=== PATIENT | female | born 1995 | race African-American/Black ===

== ENCOUNTER 2016-12-19 | Inpatient (IN) | payer MEDICAID, OTHER ==
[~2016-12-19] VITALS: Ht 157.5 cm; Wt 76.7 kg
[2016-12-19] VITALS (45 sets, daily range): BP systolic 89–142; BP diastolic 53–88
[~2016-12-19] MED LIST: PREN1TAB86 PO
--- OUTSIDE RECORDS SUMMARY | 2016-12-19 07:51 | XMS REPORT | Continuity of Care Document ---
Author Author [facility] Organization [facility] Address Unknown Phone Unavailable Care Team Providers Care Public Relations Supervisor Name Role Phone NO, LOCAL PHYSICIAN PCP Unavailable Insurance Providers Payer Name Policy Number Subscriber Name Relationship Self Pay Akiko Albert 16 Self / Same As Patient Advance Directives Directive Response Recorded Date/Time Advance Directives No 11/03/16 5:10pm Organ Donor No 11/03/16 5:10pm Resuscitation Status Full Code 11/03/16 5:10pm Problems No problem information available. Medications Current Home Medications Medication Dose Units Route Directions Days/Qty Instructions Start Date Vit W-Ca,Fe,Fa(<1 Mg) 1 Each 1 Each Oral Daily 11/03/16 Social History Social History Problem Response Recorded Date/Time Recent Foreign Travel No 11/03/2016 5:10pm Recent Infectious Disease Exposure No 11/03/2016 5:10pm Smoking Status Current Everyday Smoker 11/03/2016 5:10pm Type Used Cigars 11/03/2016 5:10pm Query Response Start Date Stop Date Smoking Status Current Everyday Smoker Hospital Discharge Instructions No hospital discharge instructions. Plan of Care Discharge Date 11/03/16 7:56pm Instructions/Education Provided OB OUTPATIENT DISCHARGE Prescriptions See Medication Section Functional Status No functional status results. Allergies, Adverse Reactions, Alerts No known allergies. Immunizations No immunization records. Vital Signs Acute Vital Signs Vital Response Date/Time Pulse Rate (adult) 96 bpm (60 - 90) 11/03/2016 6:25pm Respiratory Rate 20 bpm (12 - 24) 11/03/2016 6:25pm Blood Pressure 104/73 mm Hg 11/03/2016 6:25pm Blood Pressure Mean 83 mm Hg 11/03/2016 6:25pm Pain Numeric Pain Scale 2 11/03/2016 6:25pm Height (Feet) 5 feet 11/03/2016 5:35pm Height (Inches) 2.00 inches 11/03/2016 5:35pm Height (Calculated Centimeters) 157.494543 cm 11/03/2016 5:35pm Weight (Pounds) 152 pounds 11/03/2016 5:35pm Weight (Ounces) 0.0 oz 11/03/2016 5:35pm Weight (Calculated Grams) 32211.04 gm 11/03/2016 5:35pm Weight (Calculated Kilograms) 68.841043 kilograms 11/03/2016 5:35pm Calculated BMI 27.8 11/03/2016 5:35pm Results Laboratory Results Test Name Result Units Flags Reference Collection Date/Time Result Date/ Time Comments White Blood Count 5.1 10^3/uL 4.3-11.0 11/03/2016 5:10pm 11/03/2016 5: 34pm Red Blood Count 3.66 10^6/uL L 4.35-5.85 11/03/2016 5:10pm 11/03/2016 5: 34pm Hemoglobin 9.5 G/DL L 11.5-16.0 11/03/2016 5:10pm 11/03/2016 5:34pm Hematocrit 29 % L 35-52 11/03/2016 5:10pm 11/03/2016 5:34pm Mean Corpuscular Volume 79 FL L 80-99 11/03/2016 5:10pm 11/03/2016 5: 34pm Mean Corpuscular Hemoglobin 26 PG 25-34 11/03/2016 5:10pm 11/03/2016 5: 34pm Mean Corpuscular Hemoglobin Concent 33 G/DL 32-36 11/03/2016 5:10pm 03/2016 5:34pm Red Cell Distribution Width 14.5 % 10.0-14.5 11/03/2016 5:10pm 2015 5:34pm Platelet Count 279 10^3/uL 130-400 11/03/2016 5:10pm 11/03/2016 5:34pm Mean Platelet Volume 10.6 FL H 7.4-10.4 11/03/2016 5:10pm 11/03/2016 5: 34pm Neutrophils (%) (Auto) 48 % 42-75 11/03/2016 5:10pm 11/03/2016 5:34pm Lymphocytes (%) (Auto) 41 % 12-44 11/03/2016 5:10pm 11/03/2016 5:34pm Monocytes (%) (Auto) 9 % 0-12 11/03/2016 5:10pm 11/03/2016 5:34pm Eosinophils (%) (Auto) 2 % 0-10 11/03/2016 5:10pm 11/03/2016 5:34pm Basophils (%) (Auto) 0 % 0-10 11/03/2016 5:10pm 11/03/2016 5:34pm Neutrophils # (Auto) 2.5 X 10^3 1.8-7.8 11/03/2016 5:10pm 11/03/2016 5: 34pm Lymphocytes # (Auto) 2.1 X 10^3 1.0-4.0 11/03/2016 5:10pm 11/03/2016 5: 34pm Monocytes # (Auto) 0.5 X 10^3 0.0-1.0 11/03/2016 5:10pm 11/03/2016 5: 34pm Eosinophils # (Auto) 0.1 10^3/uL 0.0-0.3 11/03/2016 5:10pm 11/03/2016 5 :34pm Basophils # (Auto) 0.0 10^3/uL 0.0-0.1 11/03/2016 5:10pm 11/03/2016 5: 34pm Urine Color YELLOW 11/03/2016 6:29pm 11/03/2016 6:49pm Urine Clarity SLIGHTLY CLOUDY 11/03/2016 6:29pm 11/03/2016 6:49pm Urine pH 6 5-9 11/03/2016 6:29pm 11/03/2016 6:49pm Urine Specific [place] 1.025 * 1.016-1.022 11/03/2016 6:29pm 2015 6:49pm Urine Protein NEGATIVE NEGATIVE 11/03/2016 6:29pm 11/03/2016 6:49pm Urine Glucose (UA) NEGATIVE NEGATIVE 11/03/2016 6:29pm 11/03/2016 6: 49pm Urine RBC (Auto) NEGATIVE NEGATIVE 11/03/2016 6:29pm 11/03/2016 6: 49pm Urine Ketones 4+ * NEGATIVE 11/03/2016 6:29pm 11/03/2016 6:49pm Urine Nitrite NEGATIVE NEGATIVE 11/03/2016 6:29pm 11/03/2016 6:49pm Urine Bilirubin NEGATIVE NEGATIVE 11/03/2016 6:29pm 11/03/2016 6: 49pm Urine Urobilinogen 8 MG/DL * NORMAL 11/03/2016 6:29pm 11/03/2016 6:49pm Urine Leukocyte Esterase NEGATIVE NEGATIVE 11/03/2016 6:29pm 2015 6:49pm Urine RBC NONE /HPF 11/03/2016 6:29pm 11/03/2016 6:49pm Urine WBC 0-2 /HPF 11/03/2016 6:29pm 11/03/2016 6:49pm Urine Bacteria NEGATIVE /HPF 11/03/2016 6:29pm 11/03/2016 6:49pm Urine Squamous Epithelial Cells 5-10 /HPF 11/03/2016 6:29pm 2015 6:49pm Urine Crystals NONE /LPF 11/03/2016 6:29pm 11/03/2016 6:49pm Urine Casts NONE /LPF 11/03/2016 6:29pm 11/03/2016 6:49pm Urine Mucus LARGE /LPF * 11/03/2016 6:29pm 11/03/2016 6:49pm Urine Culture Indicated NO 11/03/2016 6:29pm 11/03/2016 6:49pm Urine Protein 16 MG/DL H 6-12 11/03/2016 6:15pm 11/03/2016 7:10pm Urine Creatinine 221 MG/DL H 30-125 11/03/2016 6:15pm 11/03/2016 7:10pm Urine Protein/Creatinine Ratio 0.07 11/03/2016 6:15pm 11/03/2016 7: 10pm Sodium Level 139 MMOL/L 135-145 11/03/2016 5:10pm 11/03/2016 5:53pm Potassium Level 3.5 MMOL/L L 3.6-5.0 11/03/2016 5:10pm 11/03/2016 5:53pm Chloride Level 110 MMOL/L H 98-107 11/03/2016 5:10pm 11/03/2016 5:53pm Carbon Dioxide Level 20 MMOL/L L 21-32 11/03/2016 5:10pm 11/03/2016 5: 53pm Anion Gap 9 MMOL/L 5-14 11/03/2016 5:10pm 11/03/2016 5:53pm Blood Urea Nitrogen 7 MG/DL 7-18 11/03/2016 5:10pm 11/03/2016 5:53pm Creatinine 0.50 MG/DL L 0.60-1.30 11/03/2016 5:10pm 11/03/2016 5:53pm BUN/Creatinine Ratio 14 11/03/2016 5:10pm 11/03/2016 5:53pm Estimat Glomerular Filtration Rate > 60 11/03/2016 5:10pm 2015 5:53pm GFR INTERPRETIVE DATA UNITS FOR ESTIMATED GFR (eGFR): mL/min/1.73 M2 REFERENCE RANGE FOR ESTIMATED GFR (eGFR) eGFR NORMAL eGFR >60 MODERATELY DECREASED eGFR 30-59 SEVERLY DECREASED eGFR 15-29 KIDNEY FAILURE <15 (OR DIALYSIS) Glucose Level 82 MG/DL 70-105 11/03/2016 5:10pm 11/03/2016 5:53pm Calcium Level 8.9 MG/DL 8.5-10.1 11/03/2016 5:10pm 11/03/2016 5:53pm Total Bilirubin 0.4 MG/DL 0.1-1.0 11/03/2016 5:10pm 11/03/2016 5:53pm Alkaline Phosphatase 72 U/L 40-136 11/03/2016 5:10pm 11/03/2016 5:53pm Aspartate Amino Transf (AST/SGOT) 14 U/L 5-34 11/03/2016 5:10pm 2015 5:53pm Alanine Aminotransferase (ALT/SGPT) < 6 U/L 0-55 11/03/2016 5:10pm 03/2016 5:53pm Total Protein 6.4 G/DL 6.4-8.2 11/03/2016 5:10pm 11/03/2016 5:53pm Albumin 3.2 G/DL 3.2-4.5 11/03/2016 5:10pm 11/03/2016 5:53pm Procedures No known history of procedures. Encounters Encounter Location Arrival/Admit Date Discharge/Depart Date Attending Provider Departed Clinic [facility] 11/03/16 5:00pm 11/03/16 7: 56pm NAKUL ALLISON MD
[2016-12-19] MEDS ORDERED: MINERAL OIL CONCENTRATE 99.9% 15 ML UDC TOP SCH (08:15)
[2016-12-19 08:16] LABS: BILIRUBIN,URINE NEGATIVE (NEGATIVE); KETONES,URINE 1+ (NEGATIVE); LEUKOCYTE ESTERASE ,URINE 2+ (NEGATIVE); NITRITE,URINE NEGATIVE (NEGATIVE); PH,URINE 6 (5-9); PROTEIN,URINE 2+ (NEGATIVE); UROBILINOGEN,URINE NORMAL (NORMAL)
[2016-12-19 08:23] LABS: WBC,URINE 25-50 /HPF
[2016-12-19] MEDS: D5 LR IV SOLUTION 1,000 ML IV SCH ×2 (08:40→16:37)
[2016-12-19 08:59] LABS: BASOPHILS % (AUTO) 0 % (0-10); EOSINOPHILS # (AUTO) 0.1 10^3/uL (0.0-0.3); EOSINOPHILS % (AUTO) 1 % (0-10); LYMPHOCYTES # (AUTO) 2.7 X 10^3 (1.0-4.0); LYMPHOCYTES % (AUTO) 40 % (12-44); MEAN CORPUSCULAR HEMOGLOBIN 25 PG (25-34); MEAN CORPUSCULAR HGB CONC 33 G/DL (32-36); MEAN CORPUSCULAR VOLUME 76 FL (80-99); MEAN PLATELET VOLUME 10.8 FL (7.4-10.4); MONOCYTES # (AUTO) 0.5 X 10^3 (0.0-1.0); MONOCYTES % (AUTO) 8 % (0-12); NEUTROPHILS # (AUTO) 3.4 X 10^3 (1.8-7.8); NEUTROPHILS % (AUTO) 50 % (42-75); PLATELET COUNT 324 10^3/uL (130-400); RED BLOOD COUNT 4.13 10^6/uL (4.35-5.85); RED CELL DISTRIBUTION WIDTH 14.8 % (10.0-14.5); WHITE BLOOD COUNT 6.7 10^3/uL (4.3-11.0)
[2016-12-19] MEDS ORDERED: OXYTOCIN/NORMAL SALINE 500 ML IV SCH ×2 (09:04→18:05)
[2016-12-19] MEDS ORDERED: BUPIVACAINE ONE (09:11)
[2016-12-19] MEDS ORDERED: LACTATED RINGERS 1,000 ML IV ONE ×2 (09:11→14:23)
[2016-12-19] MEDS ORDERED: SUFENTANIL ONE (09:11)
--- NOTE | 2016-12-19 09:45 | History & Physical-OB ---
OB - Chief Complaint & HPI Date Date of Admission: Date of Admission: Dec 19, 2016 at 7:46 am Chief Complaint/History OB-Reason for Admission/Chief: Induction of Labor Hx : 4 Hx Para: 3003 Expected Date of Delivery: Dec 14, 2016 Gestational Age in Weeks: 40 Gestational Age in Days: 5 Indication for induction: post dates History of Labs A+, antibody neg, rubella immune. GC/chlamydia neg. Hep B/HIV/RPR NR neg. GBS neg. Hgb 9.4. Allergies and Home Medications Allergies Coded Allergies: No Known Drug Allergies (Unverified , 11/03/16) Home Medications Vit W-Ca,Fe,FA(<1 mg) 1 Each Tablet 1 EACH PO DAILY (Reported) OB - History Hx of Present Care: Yes (very limited) Ultrasounds: Normal mid trimester US (per patient report, results not available ) Obstetrical Complications: Other (limited care, gonorrhea treated earlier in ) Medical Complications: None Information Induced Hypertension: No Maternal Gestational Diabetes: No Hemorrhage: No Obstetrical History Hx : 4 Hx Para: 3 Hx # Term Pregnancies: 2 Hx # Pregnancies: 1 Number of Living Children: 3 Hx Termination: No Hx Multiple Gestation: No Hx Ectopic : No Hx Stillbirth: No Hx Complication: No Hx Induced Hypertens: No Hx Maternal Gestational Diabet: No Hx Hemorrhage: No Delivery History Hx Dystocia: No Hx Forceps Assisted Delivery: No Hx Vacuum Extraction Assisted: No Hx Placenta Abnormality: No Hx Distress: No Hx Large For Gestational Age I: No Hx Small for Gestational Age I: No Hx Section: No Hx Vaginal Delivery Post C-Sec: No Hx Blood Disorders: No Adverse Rxn to Tranfusion: No Patient Past Medical History PMHx: Denies PSurgHx: Appendectomy Social History/Family History HIV/AIDS: No Recent Infectious Disease Expo: No Sexually Transmitted Disease: Yes (gonorrhea earlier in treated at outside facility) Alcohol Use: Denies Use Recreational Drug Use: No Smoking Cessation: Current every day smoker Immunizations Tetanus Booster (TDap): Less than 5yrs Date of Influenza Vaccine: Dec 12, 2016 Rubella: immune RPR/VDRL: Negative GBS Status: Negative HBsAG: Negative OB - Admission Exam Physical Exam HEENT: NCAT Abdomen: Gravid Extremities: Normal Cervical Dilatation: 3cm Effacement: 0% Station: -2 Membranes: Intact Contractions on Admission: None [place] Scoring Tool (Modified) Dilation (cm): 3-4cm (2) Effacement (%): 0-30% (0) Descent/Station: -2 (1) Cervix Consistency: Medium(1) Cervix Position: Anterior (2) Add 1 point for: Each previous vaginal delivery (1) (3) [place] Score: 9 Labs Laboratory Tests Test 12/19/16 08:10 12/19/16 08:40 Range/Units Ur Tricyclic Antidepressants Screen NEGATIVE NEGATIVE Urine Amphetamines Screen NEGATIVE NEGATIVE Urine Bacteria MODERATE H /HPF Urine Barbiturates Screen NEGATIVE NEGATIVE Urine Benzodiazepines Screen NEGATIVE NEGATIVE Urine Bilirubin NEGATIVE NEGATIVE Urine Cannabinoids Screen NEGATIVE NEGATIVE Urine Casts NONE /LPF Urine Clarity CLEAR Urine Cocaine Screen NEGATIVE NEGATIVE Urine Color YELLOW Urine Crystals NONE /LPF Urine Culture Indicated YES Urine Glucose (UA) NEGATIVE NEGATIVE Urine Ketones 1+ H NEGATIVE Urine Leukocyte Esterase 2+ H NEGATIVE Urine Methadone Screen NEGATIVE NEGATIVE Urine Methamphetamines Screen NEGATIVE NEGATIVE Urine Mucus MODERATE H /LPF Urine Nitrite NEGATIVE NEGATIVE Urine Opiates Screen NEGATIVE NEGATIVE Urine Oxycodone Screen NEGATIVE NEGATIVE Urine Phencyclidine Screen NEGATIVE NEGATIVE Urine Propoxyphene Screen NEGATIVE NEGATIVE Urine Protein 2+ H NEGATIVE Urine RBC NONE /HPF Urine RBC (Auto) NEGATIVE NEGATIVE Urine Specific [place] 1.025 H 1.016-1.022 Urine Squamous Epithelial Cells 10-25 H /HPF Urine Urobilinogen NORMAL NORMAL MG/DL Urine WBC 25-50 H /HPF Urine pH 6 5-9 Basophils # (Auto) 0.0 0.0-0.1 10^3/uL Basophils (%) (Auto) 0 0-10 % Eosinophils # (Auto) 0.1 0.0-0.3 10^3/uL Eosinophils (%) (Auto) 1 0-10 % Hematocrit 31 L 35-52 % Hemoglobin 10.2 L 11.5-16.0 G/DL Lymphocytes # (Auto) 2.7 1.0-4.0 X 10^3 Lymphocytes (%) (Auto) 40 12-44 % Mean Corpuscular Hemoglobin 25 25-34 PG Mean Corpuscular Hemoglobin Concent 33 32-36 G/DL Mean Corpuscular Volume 76 L 80-99 FL Mean Platelet Volume 10.8 H 7.4-10.4 FL Monocytes # (Auto) 0.5 0.0-1.0 X 10^3 Monocytes (%) (Auto) 8 0-12 % Neutrophils # (Auto) 3.4 1.8-7.8 X 10^3 Neutrophils (%) (Auto) 50 42-75 % Platelet Count 324 130-400 10^3/uL Red Blood Count 4.13 L 4.35-5.85 10^6/uL Red Cell Distribution Width 14.8 H 10.0-14.5 % White Blood Count 6.7 4.3-11.0 10^3/uL OB - Assessment/Plan/Diagnosis Assessment Assessment: induction of labor, other (social concerns- limited resources, has had other children removed from home) Plan Plan: Induction, Other (social research assistant consult) Induction Method: per Pitocin Protocol Copy Copies To 1: ANDRES MEJIA MD, BETHANY N MD Dec 19, 2016 9:45 am
[2016-12-19] MEDS ORDERED: BUPIVACAINE 0.25% 30 ML (SENSORCAINE) VIAL ONE ×2 (10:26→14:25)
[2016-12-19] MEDS ORDERED: fentaNYL INJECTION 100 MCG/2 ML AMP ONE (10:26)
[2016-12-19] MEDS: fentaNYL INJECTION 100 MCG/2 ML AMP IVP PRN ×2 (12:25→13:36)
--- NOTE | 2016-12-19 12:52 | OB Labor & Delivery Record ---
L&D History Date of Service Date of Service: Dec 19, 2016 History Expected Date of Delivery: Dec 14, 2016 Gestational Age in Weeks: 40 Hx : 4 Hx Para: 3 Complications Limited care Operative Indications (Cesarea: N/A-Vaginal Delivery Intrapartal Events: None L&D Stage1 Stage One Onset of Labor - Date: Dec 19, 2016 Onset of Labor - Time: 09:00 Monitors and Tracing Monitor Mode: External Station: 0 Assisted Variability: Average (6-10) Short Term Variability: Present Presentation: Vertex Vital Signs VS - Last 72 Hours, by Label 12/19/16 07:55 Temp 97.3 Pulse 102 Resp 18 B/P 102/73 O2 Delivery Room Air Rupture of Membranes Spontaneous Ruture of Membrane: No Amniotic Membrane Rupture Time: 12:40 Amniotic Membrane Fluid Desc.: Clear L&D Stage2 Stage Two Stage II Date: Dec 19, 2016 Stage II Time: 16:40 Stage II Duration: 7 min Cord Descript/Complications Cord Vessel Description: 3 Vessels Delivery Type Infant Delivery Method: Spontaneous Vaginal (precipitous delivery, I received call she was complete at 1640 and she delivered at 1647. I arrived at 1650 and was doing well, waiting on placenta delivery) Episiotomy/Perineal Laceration Laceraction(s)/Extensions: No Condition of Infant Delivery Delivery Date & Time: 12/19/2016 at 1647 1 minute Comment: 8 5 minute Comment: 9 Condition of Condition of : Living Exam: No Observed Abnormalities Resuscitation Resuscitation: N/A - Spontaneous Resp L&D Stage3 Stage Three Stage III Date: Dec 19, 2016 Stage III Time: 16:47 Stage III Duration: 10 min Pictocin Pitocin Administration Comment: Pitocin 30 units/500 cc bolus after delivery of placenta Placenta Delivery Placenta Delivery: Spontaneous Delivery Summary Summary Total Labor Time 7.75 hours Condition of Delivery Post Hemorrhage: No Condition of Mother Stable Condition of Infant (s) Stable, transitioning in room with mother ANDRES MEJIA MD Dec 19, 2016 12:52 pm
[2016-12-19] MEDS ORDERED: SUFENTA 1 MCG/ML BUPIVA 0.1% 100 ML ONE (13:21)
[2016-12-19] MEDS ORDERED: CATHETER FLUSH 10 ML SYR IV SCH ×2 (14:00→22:00)
[2016-12-19] MEDS ORDERED: LIDOCAINE PF 2% 10 ML (XYLOCAINE) AMP ONE (14:25)
[2016-12-19] MEDS ORDERED: ONDANSETRON 4 MG/2 ML (SDV) Z0FRAN IV PRN (14:30)
[2016-12-19] MEDS ORDERED: EPIDURAL (SUFENTANIL 1 MCG/ML BUPIVACAINE 0.1%) 100 ML EPI PRN (14:30)
[2016-12-19] MEDS ORDERED: diphenhydrAMINE 50 MG/ML INJ (BENADRYL) IV PRN (14:30)
[2016-12-19] MEDS ORDERED: LIDOCAINE PF 2% 10 ML (XYLOCAINE) AMP INJ ONE (14:30)
[2016-12-19] MEDS ORDERED: CATHETER FLUSH 10 ML SYR IV PRN (14:30)
[2016-12-19] MEDS ORDERED: BUPIVACAINE 0.25% 30 ML (SENSORCAINE) VIAL INJ ONE (14:30)
[2016-12-19] MEDS ORDERED: NALOXONE 0.4 MG/ML 1 ML (NARCAN) VIAL IV PRN (14:30)
[2016-12-19] MEDS ORDERED: TETANUS,DIPTH,PERTUSS P/F (BOOSTRIX) 0.5 ML VIAL IM ONE (18:15)
[2016-12-19] MEDS ORDERED: WITCH HAZEL(TUCKS) 40 EA JAR TOP PRN (18:15)
[2016-12-19] MEDS ORDERED: MEASLES,MUMPS,RUBELLA 1 EA INJ SQ ONE (18:15)
[2016-12-19] MEDS ORDERED: BENZOCAINE/MENTHOL (DERMOPLAST) 56 ML CAN TP PRN (18:15)
[2016-12-19] MEDS ORDERED: FLU TRIvalent (5 YOA+) 2016-17 (AFLURIA) 0.5 ML IM ONE (18:45)
[2016-12-19] MEDS ORDERED: IBUPROFEN 600 MG (MOTRIN) TAB PO ONE (20:15)
[2016-12-20 00:15] VITALS: BP 102/72
[2016-12-20] MEDS: IBUPROFEN 600 MG (MOTRIN) TAB PO SCH ×4 (02:59→19:39)
[2016-12-20 04:00] VITALS: BP 100/61
[2016-12-20 07:06] LABS: BASOPHILS % (AUTO) 0 % (0-10); EOSINOPHILS # (AUTO) 0.2 10^3/uL (0.0-0.3); EOSINOPHILS % (AUTO) 2 % (0-10); LYMPHOCYTES # (AUTO) 2.4 X 10^3 (1.0-4.0); LYMPHOCYTES % (AUTO) 34 % (12-44); MEAN CORPUSCULAR HEMOGLOBIN 25 PG (25-34); MEAN CORPUSCULAR HGB CONC 32 G/DL (32-36); MEAN CORPUSCULAR VOLUME 77 FL (80-99); MEAN PLATELET VOLUME 10.6 FL (7.4-10.4); MONOCYTES # (AUTO) 0.5 X 10^3 (0.0-1.0); MONOCYTES % (AUTO) 7 % (0-12); NEUTROPHILS # (AUTO) 4.2 X 10^3 (1.8-7.8); NEUTROPHILS % (AUTO) 57 % (42-75); PLATELET COUNT 265 10^3/uL (130-400); RED BLOOD COUNT 3.28 10^6/uL (4.35-5.85); RED CELL DISTRIBUTION WIDTH 14.7 % (10.0-14.5); WHITE BLOOD COUNT 7.3 10^3/uL (4.3-11.0)
[2016-12-20 08:27] VITALS: BP 111/72
--- NOTE | 2016-12-20 09:26 | Progress Note (SOAP) ---
Subjective Subjective/Events-last exam Patient up walking around in bed and without complaints. No dizziness. Objective Exam Last Set of Vital Signs Vital Signs Date Time Temp Pulse Resp B/P Pulse Ox O2 Delivery O2 Flow Rate FiO2 12/20/16 04:00 98.3 97 18 100/61 89 Room Air Capillary Refill : General: No Acute Distress Abdomen: Soft (with uterus firm) Results/Procedures Lab Laboratory Tests 12/20/16 06:35: Basophils # (Auto) 0.0, Basophils (%) (Auto) 0, Eosinophils # (Auto) 0.2, Eosinophils (%) (Auto) 2, Hematocrit 25L, Hemoglobin 8.1#L, Lymphocytes # (Auto ) 2.4, Lymphocytes (%) (Auto) 34, Mean Corpuscular Hemoglobin 25, Mean Corpuscular Hemoglobin Concent 32, Mean Corpuscular Volume 77L, Mean Platelet Volume 10.6H, Monocytes # (Auto) 0.5, Monocytes (%) (Auto) 7, Neutrophils # ( Auto) 4.2, Neutrophils (%) (Auto) 57, Platelet Count 265, Red Blood Count 3.28L , Red Cell Distribution Width 14.7H, White Blood Count 7.3 Microbiology 12/19/16 Urine Culture - Preliminary, Resulted Assessment/Plan Assessment/Plan Plan 1. S/P day 1 and at 24 hours this afternoon -possible DC this afternoon -Hg at 8.1 however patient is asymptomatic. Diagnosis/Problems: Clinical Quality Measures DVT/VTE Risk/Contraindication: Risk Factor Score Per Nursin RFS Level Per Nursing on Admit: 1=Low/No VTE PPX CARIDAD MOORE MD Dec 20, 2016 09:26
[2016-12-20] MEDS ORDERED: IBUP-1773 PO (09:39)
[2016-12-20 14:20] VITALS: BP 99/72
[2016-12-20 19:45] VITALS: BP 108/73
[2016-12-21] MEDS: IBUPROFEN 600 MG (MOTRIN) TAB PO SCH ×3 (01:21→12:30)
[2016-12-21 06:25] VITALS: BP 109/68
--- NOTE | 2016-12-21 09:35 | Discharge Inst-Women's Service ---
Discharge Inst-Women's Serv Depart Medication/Instructions New, Converted or Re-Newed RX: Other Consults/Follow Up Additional Follow Up: Yes (With Dr. Reilly in 6 weeks) Activity Driving Instructions: You May Drive NO SMOKING: NO SMOKING Nothing Inside Vagina: No [place] (For 6 weeks) Diet Discharge Diet: No Restrictions Return to The Hospital For: As below Symptoms to Report to : Bleeding Excessive, Pain Increased, Fever Over 101 Degrees F, Vaginal Discharge CARIDAD Ardon MD Dec 21, 2016 09:35
--- NOTE | 2016-12-21 09:38 | Discharge Summary ---
Diagnosis/Chief Complaint Date of Admission Dec 19, 2016 at 07:46 Date of Discharge December 21, 2016 Admission Diagnosis Admission Diagnosis 1. Intrauterine at term--40 weeks 5 days 2. Anemia most likely iron deficiency Discharge Diagnosis 1. Intrauterine at term--40 weeks 5 days gestation 2. Anemia most likely iron deficiency Chief Complaint/HPI Chief Complaint/HPI 21-year-old female presented to women's services in the morning of December 19, 2016 for induction of labor. Patient was noted to be at 40 weeks 5 days gestation. She is a 4 para 4 with all vaginal births prior. Discharge Summary-OBS Procedures 1. Spontaneous vaginal delivery Discharge Physical Examination Allergies: Coded Allergies: No Known Drug Allergies (Unverified , 11/03/16) Vitals & I&Os Vital Sign - Last 12Hours Date Time Temp Pulse Resp B/P Pulse Ox O2 Delivery O2 Flow Rate FiO2 12/21/16 06:25 97.4 72 16 109/68 Room Air 12/20/16 04:00 89 General Appearance: No Acute Distress Respiratory: Clear to Auscultation Cardiovascular: Regular Rate Abdominal: Soft (With uterus firm) Hospital Course Patient delivered vaginally on December 19, 2016 without complications. She was taken to the floor where she underwent routine care orders. She remained afebrile with stable vital signs. Her predelivery hemoglobin was 10.2 and after delivery 8.1. Patient was asymptomatic with regards to dizziness. She was felt ready for dismissal in the morning of December 21, 2016. She will utilize ibuprofen for cramping. She will follow-up with Dr. Reilly in 6 weeks. Labs Microbiology 12/19/16 Urine Culture - Preliminary, Resulted Discharge Instructions to patient/family Please see electonic discharge instructions given to patient. Discharge Medications Reviewed and agree with Discharge Medication list on patient's Discharge Instruction sheet Clinical Quality Measures DVT/VTE Risk/Contraindication: Risk Factor Score Per Nursin RFS Level Per Nursing on Admit: 1=Low/No VTE PPX CARIDAD MOORE MD Dec 21, 2016 09:38
[2016-12-21 09:50] VITALS: BP 117/79
--- NOTE | 2016-12-22 14:53 | Anesthesia-Regional Post-Op ---
Regional Patient Condition Mental Status: Alert, Oriented x3 Circulation: Same as Pre-Op Headache: Absent Sensation: Full Recovery Motor Block: Absent Post Op Complications Complications None Follow Up Care/Instructions Patient Instructions None needed. Anesthesia/Patient Condition Patient is already discharged to home. Attempted to call patient but no answer. According to nursing notes, she was ambulating without difficulty after epidural. RAFA GAN DO Dec 22, 2016 14:53
== END 2016-12-21 13:06 | disposition home or self-care (01) | DRG 775 ==
LOC: LDRP 07:46
PROVIDERS: ADMIT Family Medicine; ATTEND Family Medicine
PROC: 10E0XZZ Delivery of Products of Conception, External Approach (ICD-10-PCS; principal; 2016-12-19)
PROC: 3E033GC Introduction of Other Therapeutic Substance into Peripheral Vein, Percutaneous Approach (ICD-10-PCS; 2016-12-19)
DX: O48.0 Post-term pregnancy (principal); O62.3 Precipitate labor; O99.02 Anemia complicating childbirth; D50.9 Iron deficiency anemia, unspecified; Z37.0 Single live birth; Z3A.40 40 weeks gestation of pregnancy
CPT/HCPCS: 36415; 80306; 81000; 85025; 86850; 86900; 86901; 87088

== ENCOUNTER 2017-07-05 11:32 | Emergency (ER) | payer MEDICAID ==
[~2017-07-05] VITALS: Ht 160 cm; Wt 81.6 kg
[~2017-07-05 11:32] MED LIST changes: +IBUP-1773 PO
--- NOTE | 2017-07-05 12:32 | ED EENT ---
History of Present Illness General Chief Complaint: Dental Problems/Pain Stated Complaint: DENTAL PAIN Nursing Triage Note: C/O TOOTH ACHE. History of Present Illness Time seen by provider: 12:25 Initial Comments Evaluation for dental pain. No patient reports per K Tracs. Timing/Duration: abrupt Location: mouth Prearrival Treatment: no prearrival treatment Modifying Factors: Improves With Lying Down, Improves With Rest Associated Symptoms: poor fluid intake, poor solids intake Allergies and Home Medications Allergies Coded Allergies: No Known Drug Allergies (Unverified , 11/03/16) Home Medications Amoxicillin 500 Mg Capsule, 500 MG PO Q8H, #30 Ref 0 Prescribed by: MOSES DEJESUS on 07/05/17 1234 Ibuprofen 600 Mg Tablet, 600 MG PO Q6H PRN for PAIN, (Reported) Vit W-Ca,Fe,FA(<1 mg) 1 Each Tablet, 1 EACH PO DAILY, (Reported) Review of Systems Constitutional: no symptoms reported, see HPI Mouth: see HPI, pain (right dental) All Other Systems Reviewed Negative Unless Noted: Yes Past Gqqqpop-Fjzigg-Myyqgd Hx Patient Social History Alcohol Use: Denies Use Recreational Drug Use: No Type Used: Cigars Recent Foreign Travel: No Contact w/Someone Who Travel: No Recent Infectious Disease Expo: No Immunizations Up To Date Tetanus Booster (TDap): Less than 5yrs Date of Influenza Vaccine: Dec 12, 2016 Seasonal Allergies Seasonal Allergies: No Reproductive System Sexually Transmitted Disease: Yes (gonorrhea earlier in treated at outside facility) HIV/AIDS: No Blood Transfusions Hx Blood Disorders: No Adverse Reaction to a Blood Tr: No Reviewed Nursing Assessment Reviewed/Agree w Nursing PMH: Yes Family Medical History Family Medial History: Alzheimer's disease (family hx) FH: cancer (family hx) FHx: stroke (family hx) Physical Exam Vital Signs Vital Sign - Last 12Hours 07/05/17 12:10 Temp 97.2 Pulse 83 Resp 18 B/P (MAP) 115/80 Pulse Ox 100 General Appearance: WD/WN, no apparent distress Eyes: bilateral eye EOMI, bilateral eye PERRL, bilateral eye normal inspection Ears: bilateral ear TM normal, bilateral ear auricle normal, bilateral ear canal normal Nose: normal inspection, No active bleeding Mouth/Throat: pharynx normal, dental tenderness (right upper and lower molars.) , mandibular swelling, maxillary swelling, No tonsillar exudate, other (no abscess noted) Neck: non-tender, full range of motion, normal inspection, lymphadenopathy (R) Cardiovascular: normal peripheral pulses, regular rate, rhythm Respiratory: chest non-tender, lungs clear Neurologic/Psychiatric: alert, normal mood/affect, oriented x 3 Skin: normal color, warm/dry Progress/Results/Core Measures Results/Orders My Orders Orders - MOSES DEJESUS Ketorolac Injection (Toradol Injection) (07/05/17 12:39) Lidocaine 2% Viscous 15 Ml (Xylocaine Vi (07/05/17 12:45) Amoxicillin Capsule (Polymox Capsule) (07/05/17 12:39) Medications Given in ED Current Medications Medications Dose Ordered Sig/Jose Route Start Time Stop Time Status Last Admin Dose Admin Lidocaine HCl 5 ml ONCE ONCE PO 07/05/17 12:45 07/05/17 12:46 DC 07/05/17 13:07 5 ML Vital Signs/I&O Vital Sign - Last 12Hours 07/05/17 07/05/17 12:10 13:24 Temp 97.2 97.2 Pulse 83 83 Resp 18 18 B/P (MAP) 115/80 Pulse Ox 100 100 Blood Pressure Mean: 92 Departure Impression Impression: Primary Impression: Dental caries Additional Impression: Pain, dental Disposition: 01 HOME, SELF-CARE Condition: Improved Departure-Patient Inst. Decision time for Depature: 12:40 Referrals: NO,LOCAL PHYSICIAN (PCP/Family) Primary Care Physician Patient Instructions: Dental Pain (DC), Tooth Decay, Adult (DC) Add. Discharge Instructions: Use gauze with lidocaine every 2-4 hours, apply to area of tenderness. Remove before eating or drinking. DO NOT SLEEP WITH THE GAUZE IN PLACE. Call [facility] tomorrow for appointment. Take antibiotic as prescribed. Alternate heat or ice to cheek to assist with pain. Increase oral intake and soft food as tolerated. Tylenol 650 mg every 6 hours and ibuprofen 800 mg every 8 hours. Return to emergency department if increased pain, inability to eat or drink, shortness of breath, or new problems. All discharge instructions reviewed with patient and/or family. Voiced understanding. Scripts Amoxicillin (Amoxicillin) 500 Mg Capsule 500 MG PO Q8H, #30 CAP 0 Refills Prov: MOSES DEJESUS 07/05/17 Copy Copies To 1: DIXIE RIOS MD, AMY ARNP Jul 05, 2017 12:32
[2017-07-05] MEDS ORDERED: AMOX500C2 PO (12:34)
[2017-07-05] MEDS ORDERED: AMOXICILLIN 500 MG (POLYMOX) CAP PO STA (12:39)
[2017-07-05] MEDS ORDERED: KETOROLAC 60 MG/2 ML VIAL IM STA (12:39)
[2017-07-05] MEDS ORDERED: LIDOCAINE 2% VISCOUS 15 ML UDC PO ONE (12:45)
[2017-07-05 13:24] VITALS: BP 115/80
== END 2017-07-05 13:23 | disposition home or self-care (01) ==
LOC: EDUNIT# 11:32 → ER 11:33
DX: K02.9 Dental caries, unspecified (principal); Z86.19 Personal history of other infectious and parasitic diseases
CPT/HCPCS: 99284